=== PATIENT | male | born 1950 | race African-American/Black ===

== ENCOUNTER 2016-05-27 14:36 | Outpatient (CLI) | payer MEDICARE ==
--- NOTE | 2016-05-27 16:18 | XRay Report ---
RIGHT HAND THREE VIEWS: 05/27/16 14:36:00 CLINICAL: Swelling. FINDINGS: Moderate osteoarthritis at the first MCP joint and the IP joint of the thumb. Mild osteoarthritis at the basal joint of the thumb. The rest of the joints are normal. The carpal bones are intact. No fracture or dislocation. The soft tissues are normal. No foreign body or soft tissue air. IMPRESSION: Osteoarthritis of the thumb.
== END 2016-05-27 14:37 | disposition home or self-care (01) ==
LOC: SPVIMAG 14:36
PROVIDERS: ATTEND Family Medicine Adult Medicine
DX: M19.041 Primary osteoarthritis, right hand (principal)